=== PATIENT | male | born 1945 | race Two or more races ===

== ENCOUNTER → 2020-12-30 | Outpatient (CLI) | payer MEDICARE | END | disposition home or self-care (01) | LOC: EDSTATUS 12-02 13:00 → CFH 12:09 | PROVIDERS: ATTEND Nurse Practitioner Family | DX: G31.89 Other specified degenerative diseases of nervous system (principal); R41.89 Other symptoms and signs involving cognitive functions and awareness | CPT/HCPCS: 70551 ==

== ENCOUNTER → 2021-02-11 | Outpatient (CLI) | payer MEDICARE ==
[~2021-02-11] MED LIST: OMNIPAQUE 350 MG/ML, 100ML BOTTLE ONE
[2021-02-11 11:19] LABS: CREATININE 1.25 mg/dL (0.7-1.3)
== END | disposition home or self-care (01) ==
LOC: RAD 10:32
PROVIDERS: ATTEND Urology
DX: C61 Malignant neoplasm of prostate (principal); K76.0 Fatty (change of) liver, not elsewhere classified; N28.1 Cyst of kidney, acquired; I71.4 Abdominal aortic aneurysm, without rupture; K80.20 Calculus of gallbladder without cholecystitis without obstruction; M47.816 Spondylosis without myelopathy or radiculopathy, lumbar region
CPT/HCPCS: 36415; 71260; 74177; 78306; 82565; A9503; Q9967